=== PATIENT | male | born 1950 | race Caucasian/White ===

== ENCOUNTER → 2017-08-11 | Outpatient (CLI) | payer MEDICARE, BC ==
--- NOTE | 2017-08-11 18:36 | XCELERA REPORT ---
[address] [address] Lower Extremity Arterial Evaluation Name: KELECHI CORBIN Age: 67 yrs Gender: Male : 1950 Patient Status: Outpatient Patient Location: Study Date: 08/11/2017 08:57 AM Procedure: A color flow and duplex scan of the lower extremity arteries was performed bilaterally with velocity and waveform anaylsis. Reason For Study: RLE ULCER Ordering Physician: DONALDO PACE Performed By: Mi Garrison Measurements and Calculations Right Left SCRAP YARD WORKER PSV 144.6 78.9 cm/sec Prox PFA PSV -82.5 -440.9 cm/sec Prox SFA PSV -46.8 -65.1 cm/sec Mid SFA PSV -45.3 -69.5 cm/sec Dist SFA PSV -172.9 -27.7 cm/sec Prox Pop A PSV 29.1 30.8 cm/sec Mid SILVER PSV 43.8 cm/sec Dist SILVER PSV 53.8 cm/sec Prox RELAY MECHANIC PSV 23.0 cm/sec Dist RELAY MECHANIC PSV 39.3 cm/sec Mid Tank A PSV 32.2 cm/sec Dist Tank A PSV 31.0 cm/sec Feliberto Pedis PSV -14.7 54.6 cm/sec Right Side Arterial Evaluation Monophasic waveforms noted from the Common Femoral artery to the infrageniculate vessels. Normal velocities proximally, reduced distally. Biphasic in the Deep Femoral artery. 50-99% stenosis at the [place] inflow. Ankle Brachial index was not obtainable, dressings in place. Left Side Arterial Evaluation Near normal velocity and biphasic waveforms noted in the Common Femoral artery. Otherwise monophasic to the infrageniculate vessels. Stenosis with elevated velocity in the Deep Femoral. Occlusion with monophasic reconstitution in the Posterior Tibial artery. 20-49 % stenosis at the [place] inflow. With sequential changes. Ankle Brachial index Posterior tibial occluded. Interpretation Summary Severe hemodynamically significant lesions in the bilateral lower extremities, on duplex imaging, at rest. Complex, multisegmental disease. : DONALDO PACE > Donaldo Pace
== END ==
LOC: SP 08:23
PROVIDERS: ATTEND Surgery
DX: L97.312 Non-pressure chronic ulcer of right ankle with fat layer exposed (principal)
CPT/HCPCS: 93925